=== PATIENT | female | born 1995 | race Caucasian/White ===

== ENCOUNTER 2020-05-04 10:47 | Outpatient (CLI) | payer OTHER, SELFPAY ==
[2020-05-04 12:40] LABS: Hematocrit 36.3 % (37.0-47.0); Hemoglobin 12.6 g/dL (12.0-15.0); Mean Corpuscular HGB Conc 34.7 g/dl (32-36); Mean Corpuscular Hemoglobin 32.1 pg (26-34); Mean Corpuscular Volume 92.4 fl (80-100); Mean Platelet Volume 10.9 fl (7.4-10.4); Platelet Count Result 189 k/mm3 (150-375); Red Blood Count 3.93 M/mm3 (4.2-5.4); Red Cell Distribution Width 13.3 % (11.5-14.5); White Blood Count 9.9 K/mm3 (4.5-10.0)
[2020-05-04 12:56] LABS: Glucose 1 Hour PP 50gm Dose 171 mg/dL
[2020-05-04 13:38] LABS: HIV 1/2 Ab P24 Ag Result Negative (Negative)
== END 2020-05-04 10:48 | disposition home or self-care (01) ==
PROVIDERS: Visit Provider Obstetrics & Gynecology
DX: Z34.92 Encounter for supervision of normal pregnancy, unspecified, second trimester (principal); Z3A.00 Weeks of gestation of pregnancy not specified
CPT/HCPCS: 36415; 82947; 85027; 86703; G0432

== ENCOUNTER 2020-05-04 12:26 | Emergency (ER) | payer OTHER, SELFPAY ==
[2020-05-04 12:49] VITALS: BP 105/70; PULSE 98; RESP 18; TEMP 36.1; O2SAT 99
--- NOTE | 2020-05-04 14:05 | PC.NURSE ---
1325-NO ANSWER WHEN CALLED BACK TO EXAM ROOM 1340-NO ANSWER WHEN CALLED BACK TO EXAM ROOM REGISTRATION NOTIFIED
== END 2020-05-04 12:35 | disposition left against medical advice (07) ==
DX: Z53.21 Procedure and treatment not carried out due to patient leaving prior to being seen by health care provider (principal)
CPT/HCPCS: 99199

== ENCOUNTER 2020-05-07 13:47 | Outpatient (CLI) | payer OTHER, SELFPAY ==
--- NOTE | ~2020-05-07 | US_ITS ---
US breast RT complete 05/07/2020 14:33 Indication: Right breast pain with palpable lump. Patient is 30 weeks . Procedure: High-resolution ultrasound of the right breast Comparison: No prior studies for comparison. Findings: At 5:00, 1 cm from the nipple in the area of palpable concern there is an irregularly mirza nated hypoechoic mass measuring 3.8 x 3.7 x 2.1 cm with internal vascularity. There is no significant posterior features and parallel orientation. Impression: 1: Irregular shaped hypoechoic right breast mass at 5:00, 1 cm from the nipple. BI-RADS CATEGORY 4-SUSPICIOUS ABNORMALITY RECOMMENDATION: Ultrasound-guided right breast biopsy recommended. Reviewed, dictated and finalized at location A. ANICS HANDYMAN Impression: 1: Irregular shaped hypoechoic right breast mass at 5:00, 1 cm from the nipple. BI-RADS CATEGORY 4-SUSPICIOUS ABNORMALITY RECOMMENDATION: Ultrasound-guided right breast biopsy recommended.
== END 2020-05-07 13:48 | disposition home or self-care (01) ==
PROVIDERS: PCP Physician Assistant; Visit Provider Obstetrics & Gynecology
DX: N64.4 Mastodynia (principal); R92.8 Other abnormal and inconclusive findings on diagnostic imaging of breast
CPT/HCPCS: 76641

== ENCOUNTER 2020-06-17 14:47 | Outpatient (CLI) | payer OTHER, SELFPAY ==
--- NOTE | ~2020-06-17 | US_ITS ---
EXAMINATION: US OB follow up DATE: 06/17/2020 15:16 INDICATION: growth restriction. TECHNIQUE: Real-time ultrasound of the pelvis was performed. The interpreting radiologist was not pre sent for the study. COMPARISON: None FINDINGS: There is a single living fetus in vertex presentation. The placenta is fundal. heart rate is 1 34 beats per minute (bpm). The amniotic fluid index is 15.7 cm, which is normal (5th%-95%: 7.7-24.9 cm at 36 weeks estimated gestational age). The following biometric data were obtained: BPD: 9.2 cm -> 37 weeks 2 days Head circumference: 32.8 cm -> 37 weeks 1 days Abdominal circumference: 32.3 cm -> 36 weeks 1 days Femur length: 7.3 cm -> 37 weeks 2 days These measurements are concordant. Head circumference to abdominal circumference ratio: 1.01 (normal range 0.92-1.05). Estimated weight: 3007 g (+/-) 451 g. or 6 lbs. 10 oz. (+/-) 1 lbs. IMPRESSION: 1. Single living fetus in vertex presentation with heart rate of 134 bpm. 2. Gestational age by ultrasound of 37 weeks 0 day(s) +/- 2 week(s) 4 day(s) with ultrasound estimate d date of delivery (SYDNIE) of 07/08/2020. Estimated weight is 58th percentile by Hadlock criteria when 07/11/2020 is used as the SYDNIE. Please correlate with clinical information or earlier ultrasounds for most accurate SYDNIE. 3. Normal amniotic fluid index of 15.7 cm Reviewed, dictated and finalized at location A. M MEASURER IMPRESSION: 1. Single living fetus in vertex presentation with heart rate of 134 bpm. 2. Gestational age by ultrasound of 37 weeks 0 day(s) +/- 2 week(s) 4 day(s) wi th ultrasound estimated date of delivery (SYDNIE) of 07/08/2020. Estimated we ight is 58th percentile by Hadlock criteria when 07/11/2020 is used as the SYDNIE. Please correlate with clinical information or earlier ultrasounds for most accu rate SYDNIE. 3. Normal amniotic fluid index of 15.7 cm
== END 2020-06-17 14:48 | disposition home or self-care (01) ==
PROVIDERS: PCP Physician Assistant; Visit Provider Obstetrics & Gynecology
DX: O35.8XX9 Maternal care for other (suspected) fetal abnormality and damage, other fetus (principal); Z3A.37 37 weeks gestation of pregnancy
CPT/HCPCS: 76816

== ENCOUNTER 2020-07-07 13:31 | Outpatient (RCR) | payer OTHER, SELFPAY ==
[2020-06-25 14:42] VITALS: BP 114/66; PULSE 90
[2020-06-29 15:10] VITALS: BP 110/75; PULSE 95
[2020-07-02 14:56] VITALS: BP 102/70; PULSE 106
--- NOTE | ~2020-07-07 | US_ITS ---
EXAMINATION: US OB BPP wo non-stress DATE: 06/25/2020 14:41 INDICATION: Maternal gestational diabetes during third trimester of TECHNIQUE: Real-time pelvic ultrasound was performed. The interpreting radiologist was not present fo r the study. COMPARISON: 06/17/2020 FINDINGS: There is a single living fetus in breech presentation. The placenta is fundal. heart rate is 1 31 beats per minute (bpm). Biophysical profile performed by the technologist: breathing (30 sec sustained breathing in 30 minutes): 2 out of 2 movement (3 gross body movements in 30 minutes): 2 out of 2 tone (one episode of tpmwsgr-qihgkouml-wxiiemr limb movement): 2 out of 2 Amniotic fluid pocket (2 cm): 2 out of 2 Total score: 8 out of 8 IMPRESSION: 1. Single living fetus in breech presentation with heart rate of 131 bpm. 2. Biophysical profile 8 out of 8. Reviewed, dictated and finalized at location B. S OR SURVEYS INTERVIEWER
--- NOTE | ~2020-07-07 | US_ITS ---
EXAMINATION: US OB BPP wo non-stress DATE: 07/02/2020 14:59 VARIETY SAW OPERATOR INDICATION: Gestational diabetes TECHNIQUE: Real-time transabdominal obstetric ultrasound. FINDINGS: Ultrasound dated 06/25/2020 There is a single living fetus in vertex presentation. The placenta is fundal without placenta previ a. cardiac activity and movement is noted with a heart rate of 146 beats per minute. Biophysical profile: breathin of 2 movement: 2 of 2 tone: 2 of 2 Amniotic flud pocket: 2 of 2 Total score: 8 of 8 IMPRESSION: 1. Single living intrauterine in vertex presentation. 2: Total biophysical profile score of 8/8. Reviewed, dictated and finalized at location A. ETY SAW OPERATOR
[2020-07-07 14:06] VITALS: BP 100/75; PULSE 84
== END 2020-07-13 07:32 | disposition home or self-care (01) ==
LOC: ANHOBOP 13:31
PROVIDERS: PCP Physician Assistant; Visit Provider Obstetrics & Gynecology
DX: O24.419 Gestational diabetes mellitus in pregnancy, unspecified control (principal); Z3A.37 37 weeks gestation of pregnancy; Z3A.38 38 weeks gestation of pregnancy; Z3A.39 39 weeks gestation of pregnancy
CPT/HCPCS: 59025; 76819

== ENCOUNTER 2020-07-09 17:01 | Inpatient (IN) | payer OTHER, SELFPAY ==
[2020-07-09] VITALS (7 sets, daily range): BP systolic 97–126; BP diastolic 55–77; PULSE 80–101; TEMP 36.8; BMI 31.4
[2020-07-09 17:48] LABS: Glucose Point of Care 127 (65-105)
[2020-07-09 17:52] LABS: Basophils Percent Auto 0.3 % (0.2-1.2); Eosinophils Percent Auto 0.4 % (0-4.4); Hematocrit 36.5 % (37.0-47.0); Hemoglobin 12.6 g/dL (12.0-15.0); Immature Granulocyte Absolute 0.13 K/mm3 (0.00-0.031); Immature Granulocyte Percent A 1.4 % (0-0.5); Lymphocytes Percent Auto 18.1 % (18.3-44.2); Mean Corpuscular HGB Conc 34.5 g/dl (32-36); Mean Corpuscular Volume 89.7 fl (80-100); Mean Platelet Volume 11.4 fl (7.4-10.4); Monocytes Absolute Auto 0.4 K/mm3 (0.1-0.6); Monocytes Percent Auto 4.7 % (2.6-8.5); Neutrophils Percent Auto 75.1 % (45.5-73.1); Platelet Count Result 185 k/mm3 (150-375); Red Blood Count 4.07 M/mm3 (4.2-5.4); Red Cell Distribution Width 13.6 % (11.5-14.5); White Blood Count 9.4 K/mm3 (4.5-10.0)
--- NOTE | 2020-07-09 18:07 | LDADM ---
This patient, Osiris Santo, was admitted to Labor/Delivery/Recovery 105 on 07/09/20 at 17:01. Plans for labor, pain management and were discussed with patient. Patient/family oriented to hospital policies and general routines including ID bracelet, bed and alarms, visiting hours, pain management, procedures, bathroom and other care routines, personal items, smoking policy, room service/diet and guest tray routines, security routines, and visiting hours. Patient/Family are encouraged to report perceived risks to care and to ask questions if they do not understand what they are told or what they should do. See OBIX for further documentation.
[2020-07-09] MEDS: DINOPROSTONE 10 MG VAG INSERT VAGINAL (18:17)
[2020-07-09] MEDS: ACETAMINOPHEN 500 MG TABLET 1000 MG PO (18:24)
[2020-07-10] VITALS (106 sets, daily range): BP systolic 99–139; BP diastolic 52–88; PULSE 73–212; RESP 18; TEMP 36.2–36.6; O2SAT 82–100
[2020-07-10] MEDS: fentaNYL CITRATE INJ (*CRX) 100 MCG/2 ML VIAL 50 MCG IV PUSH (03:43)
[2020-07-10 04:37] LABS: Glucose Point of Care 103 (65-105)
[2020-07-10] MEDS: LACTATED RINGERS 1,000 ML 125 ML IV CONT ×3 (04:54→07:23)
[2020-07-10] MEDS: OXYTOCIN 30 UNITS/NS 500 ML 30 UNITS/500 ML BAG IV CONT (05:15)
--- NOTE | 2020-07-10 05:27 | WPDANESEPP ---
Anes - Eval Pre Procedure Procedure: Labor epidural Date/Time: 07/10/20 05:27 Surgeon: ivan Preop Diagnosis: Abd pain with contractions Pre Op Diagnosis: Induction of Labor Patient Data Age: 25 Gender: F Height: 5 ft 6 in Weight: 88.5 kg Last Vital Signs Temp 97.8 F 07/10/20 04:31 Pulse 87 07/10/20 05:15 BP 128/76 07/10/20 05:15 Allergies Allergy/AdvReac Type Severity Reaction Status Date / Time latex Allergy Mild Rash Verified 05/04/20 12:54 azithromycin AdvReac Intermediate Nausea and Verified 05/04/20 12:54 Vomiting morphine AdvReac Intermediate Nausea and Verified 07/09/20 19:11 Vomiting Penicillins AdvReac Intermediate Nausea and Verified 05/04/20 12:54 Vomiting amoxicillin AdvReac Mild VOMITING Verified 05/04/20 12:54 diphenhydramine AdvReac Unknown Nausea and Verified 05/04/20 12:54 Vomiting Home Medications Medication Instructions Recorded Confirmed Type acyclovir 400 mg PO BID 06/25/20 07/09/20 History levothyroxine 75 mcg PO DAILY 06/25/20 07/09/20 History ondansetron 8 mg PO Q6H PRN 06/25/20 07/09/20 History wrgqijv-sorhbyzxnzljx-tpltdxob 2 tablet PO Q4-6H PRN 07/09/20 07/09/20 History [Excedrin Migraine] Laboratory Tests 07/09/20 07/09/20 07/09/20 17:43 17:46 17:46 WBC 9.4 K/mm3 K/mm3 (4.5-10.0) RBC 4.07 M/mm3 L M/mm3 (4.2-5.4) Hgb 12.6 g/dL g/dL (12.0-15.0) Hct 36.5 % L % (37.0-47.0) MCV 89.7 fl fl (80-100) MCH 31.0 pg pg (26-34) MCHC 34.5 g/dl g/dl (32-36) RDW 13.6 % % (11.5-14.5) Plt Count 185 k/mm3 k/mm3 (150-375) MPV 11.4 fl H fl (7.4-10.4) Immature Gran % (Auto) 1.4 % H % (0-0.5) Neut % (Auto) 75.1 % H % (45.5-73.1) Lymph % (Auto) 18.1 % L % (18.3-44.2) [place] % (Auto) 4.7 % % (2.6-8.5) Eos % (Auto) 0.4 % % (0-4.4) Baso % (Auto) 0.3 % % (0.2-1.2) Lymph # (Auto) 1.70 K/mm3 K/mm3 (0.9-3.2) [place] # (Auto) 0.4 K/mm3 K/mm3 (0.1-0.6) Eos # (Auto) 0.0 K/mm3 K/mm3 (0-0.3) Baso # (Auto) 0.0 K/mm3 K/mm3 (0.0-0.1) Abs Immat Gran (auto) 0.13 K/mm3 H K/mm3 (0.00-0.031) Absolute Neuts (auto) 7.0 K/mm3 H K/mm3 (1.3-6.7) Absolute Nucleated RBC 0.0 K/mm3 K/mm3 (0.0-0.012) Nucleated RBC % 0.0 % % (0.0-0.2) POC Capillary Glucose 127 mg/dl H mg/dl (65-105) RPR Pending Blood Type Antibody Screen 07/09/20 07/10/20 17:46 04:31 WBC RBC Hgb Hct MCV MCH MCHC RDW Plt Count MPV Immature Gran % (Auto) Neut % (Auto) Lymph % (Auto) [place] % (Auto) Eos % (Auto) Baso % (Auto) Lymph # (Auto) [place] # (Auto) Eos # (Auto) Baso # (Auto) Abs Immat Gran (auto) Absolute Neuts (auto) Absolute Nucleated RBC Nucleated RBC % POC Capillary Glucose 103 mg/dl mg/dl (65-105) RPR Blood Type O Positive Antibody Screen Negative Patient hx anesthesia problems: none Family hx anesthesia problems: none PMFSH Past Medical History Medical History Gestational diabetes 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
--- NOTE | 2020-07-10 06:36 | PM.OBPNLAB ---
Pain Control Date/time seen: 07/10/20 06:36 Pain control: epidural Pelvic Exam Dilation (cm): 2 (.5) Effacement (%): 50 station: -2 Amniotic membrane status: Ruptured (scant, clear @ 0630) Contractions Monitor mode: External Contraction frequency: 2 Contraction pattern: Regular Status status: Category l Assessment and Plan Pitocin rate (mU/min): 6 Assessment: induction ongoing Plan: continuous present management
[2020-07-10] MEDS: ONDANSETRON INJ 4 MG/2 ML VIAL IV PUSH (06:49)
[2020-07-10 07:11] LABS: Rapid Plasma Reagin Non-Reactive (NonReactive)
[2020-07-10 08:29] LABS: Glucose Point of Care 96 (65-105)
--- NOTE | 2020-07-10 10:51 | WPDHPUPDATE1 ---
History and Physical Update Update Date/Time: 07/10/20 10:51 History and Physical has been reviewed, including an updated exam of the patient. There are NO changes in the patient's condition. Risks, benefits, and alternatives have been discussed and questions answered. Patient agrees to proceed with procedure.
--- NOTE | 2020-07-10 10:51 | WPDOBADMIT ---
Obstetrics - Admit Note Admission Note: record reviewed. No pertinent additions to the history and/or any subsequent changes in the physical findings that are not consistent with the expected course of the were found. Additions to the history and/or subsequent changes in the physical findings follow. None.
--- NOTE | 2020-07-10 10:51 | PM.OBPRVD ---
OB - Delivery Note Procedure Route of delivery: Episiotomy description: None Laceration Description: None Specimen: Yes Quantitative Blood Loss (ml): 300 Anesthesia type: Epidural Disposition: floor Narrative: Patient prepped and draped. Maternal expulsive efforts readily delivered vertex nuchal cord was noted and reduced. Rest of baby was delivered cord clamped. Placenta delivered spontaneously with the uterus well contracted. Cervix vagina vulva were inspected with no lacerations or tears. This point the procedure was considered terminated. [place] Baby Weeks of gestation at delivery: 39 Infant gender: Female Weight (pounds): 7 Weight (ounces): 4 score one minute: 8 score five minutes: 9
[2020-07-10] MEDS: OXYTOCIN 30 UNITS/NS 500 ML 30 UNITS/500 ML BAG 125 UNITS IV CONT (10:55)
[2020-07-10] MEDS: IBUPROFEN 600 MG TABLET (11:24)
[2020-07-10] MEDS: ACETAMINOPHEN 500 MG TABLET 1000 MG PO (11:25)
--- NOTE | 2020-07-10 13:39 | PC.NURSE ---
Patient transferred to post room #282 via wheelchair. Support person present. Oriented to unit, room, information board, rooming in, admission packet and security measures. Patient verbalizes understanding.
[2020-07-10] MEDS: IBUPROFEN 600 MG TABLET PO ×2 (17:52→23:58)
[2020-07-10] MEDS: ACETAMINOPHEN 325 MG TABLET 650 MG PO (23:59)
[2020-07-11 06:16] LABS: Hematocrit 33.1 % (37.0-47.0); Hemoglobin 11.3 g/dL (12.0-15.0)
[2020-07-11] MEDS: ACETAMINOPHEN 325 MG TABLET 650 MG PO (07:16)
[2020-07-11] MEDS: LEVOTHYROXINE SODIUM 75 MCG TABLET PO (07:16)
[2020-07-11 07:17] VITALS: BP 109/73; PULSE 80; RESP 16; TEMP 36.4; O2SAT 100
[2020-07-11] MEDS: IBUPROFEN 600 MG TABLET PO (07:17)
--- NOTE | 2020-07-11 09:24 | WPDANLDPN2 ---
Anes-Prog Note L&D Date/Time: 07/11/20 09:24 Comfortable throughout: labor and delivery Neuraxial method: epidural Epidural/Spinal procedure site: clean & non-tender Neuro status: Neuro function grossly intact. Cardiovascular status: normal Respiratory status: normal Airway patency: baseline Mental status: baseline Post-Op hydration status: normal Vital Signs: Last Vital Signs Temp 36.5 C 07/10/20 19:30 Pulse 75 07/10/20 19:30 Resp 18 07/10/20 19:30 BP 104/69 07/10/20 19:30 Pulse Ox 99 07/10/20 19:30 Pain score (VAS): 0 Post-procedural complaints: none Patient feedback: Patient satisfied with anesthetic care.
[2020-07-11] MEDS: PARoxetine 10 MG TABLET PO (10:50)
[2020-07-11] MEDS: traMADol HCL (*CRX) 50 MG TABLET PO (10:51)
--- NOTE | 2020-07-14 08:40 | PM.OBDSVD ---
DS: Admitting Diagnosis Admitting Diagnosis Admitting Diagnosis: OB - DS: Summary OB Procedures : None OB Procedures Intrapartum: Spontaneous Vag Delivery OB Procedures: : None Time Spent with Patient Time attestation: Total time spent providing and/or coordinating discharge services: DS: Data Data Completed and Pending Pending studies at discharge: Pending at discharge 07/10/20 10:26 Surgical [PTH] Routine Discharge Plan Discharge Attending physician on discharge: Annamaria Lugo Discharging Clinician: Annamaria Lugo Anticipated Discharge Date/Time: 07/11/20 15:00 Patient Disposition: Home, Self-Care Activity: pelvic rest Diet: regular Discharge Instructions: Education: Mom and Baby Guide Given to: Mother Follow-Up: Call your delivering provider's office for an appointment to be seen in: 2 Weeks Mom and baby should come to the [facility] for the follow-up appointment. Appointment Date/Time: July 13, 2020 at 10:00 am Call [phone] if you are unable to keep your appointment time. BREAST CARE: * Wear a snug supportive bra. * For engorgement discomfort: Bottle Feeding: * May apply ice packs PERINEAL CARE: * Until bleeding stops, use your oliver bottle after urinating * Change your pad frequently throughout the day * You may take sitz baths several times a day (fill your bathtub with warm water and soak for 20 minutes.) Do NOT bathe in the water * No tub baths until seen by your physician - You may shower ACTIVITY: * Rest as much as possible. * Do not exercise or lift anything heavier than your baby (such as laundry or other children.) * Avoid stairs or driving as much as possible. * Do not put anything into the vagina. No douching, tampons, or sexual activity until seen by physician. NOTIFY PHYSICIAN IF YOU HAVE ANY QUESTIONS OR IF ANY OF THE FOLLOWING SYMPTOMS OCCUR: * If your episiotomy or incision becomes red, swollen, or more painful than what you have experienced in the hospital. * If your vaginal bleeding becomes foul smelling. * If your vaginal bleeding becomes more heavy than a period or if your bleeding changes from pink to bright red. However, you may pass an occasional walnut-sized clot once or twice for the first week . * If you experience a sharp, shooting pain in you calves. * If you discover a hard, reddened area on your breast or if you experience flu-like symptoms. DIET: * Eat regular, well-balanced meals. * Drink plenty of fluids daily. If , drink to thirst. Follow-up/Referrals: Kam Serna MD [Physician] - 2 Weeks Discharge Medications: New acetaminophen [Mapap (acetaminophen)] 325 mg Tablet 650 mg PO Q6H PRN (Reason: Mild Pain (1-3) Or Headache) 10 Days Qty: 60 RF: 0 ibuprofen 600 mg Tablet 600 mg PO Q6H PRN (Reason: Cramping) 10 Days Qty: 40 RF: 0 paroxetine HCl 10 mg tablet 10 mg PO QAM Qty: 90 RF: 2 tramadol 50 mg tablet 50 mg PO Q6H PRN (Reason: pain) 3 Days Qty: 10 RF: 0 Continued levothyroxine 75 mcg tablet 75 mcg PO DAILY 90 Days Qty: 90 RF: 3 Discontinued Excedrin Migraine 250-250-65 mg Tablet 2 tablet PO Q4-6H PRN (Reason: Headache) RF: 0 acyclovir 400 mg tablet 400 mg PO BID RF: 0 ondansetron 8 mg tablet,disintegrating 8 mg PO Q6H PRN (Reason: Nausea) RF: 0 Date of admission: 07/09/20 17:01 Primary Care Provider: Celso,Parish Gastelum Admitting Provider: Kam Serna Attending physician on admission: Annamaria Lugo Condition: Stable
== END 2020-07-11 14:25 | disposition home or self-care (01) | DRG 560 ==
LOC: ANHLDR 07-10 12:53 → ANHOB2 07-11 09:42 → ANHLDR 07-14 06:38 → ANHOB2 07-14 06:38
PROVIDERS: Admitting Provider Obstetrics & Gynecology; PCP Physician Assistant; Visit Provider Obstetrics & Gynecology
DX: O69.81X0 Labor and delivery complicated by cord around neck, without compression, not applicable or unspecified (principal); O24.429 Gestational diabetes mellitus in childbirth, unspecified control; O76 Abnormality in fetal heart rate and rhythm complicating labor and delivery; Z3A.39 39 weeks gestation of pregnancy; Z37.0 Single live birth
CPT/HCPCS: 36415; 82948; 85014; 85018; 85025; 86592; 86850; 86900; 86901; 88307; A9270; J2405; J2590; J2795; J3010; J7120

== ENCOUNTER 2021-12-15 01:32 | Day surgery (SDC) | payer OTHER, SELFPAY ==
[2021-12-02 11:41] VITALS: BMI 30.2
--- NOTE | 2021-12-14 18:36 | PM.HPGS ---
History of Present Illness History of Present Illness Consent: Risks, benefits, and alternatives have been discussed and questions answered. Patient agrees to proceed with procedure. Chief complaint: reflux, dysphagia, nausea Narrative: Osiris Santo is a 26 year old female with dysphagia.? Reports symptoms have been going on for approximately a year and a half but over the past 6 months have progressively got worse. Reports dysphagia is worse with solids, but does state she will choke on water and liquids occasionally. ? Patient reports dysphagia daily, ? States? food starts going down slowly in mid chest and seems to stop epigastric area.? States sometimes she coughs it back up or it will pass after few minutes. ? She reports reflux and nausea daily.? Reflux is worse when she bends over and at night when she is laying down. Her mother was diagnosed with colon cancer at the age 52. The patient has several mushy stools every day. 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 Smoker Surgical History Surgical History History of mandibular surgery Family History Family History Mother Diabetes mellitus Hypothyroidism Gastroparesis Social History Social History Smoking packs per day: 2 Smoking cigarettes per day: 40.0 Years smoked: 6.5 Smoking pack-years: 13.00 Smoking status: Current some day smoker Tobacco type: cigarettes Second hand tobacco smoke exposure: No Alcohol intake: current Alcohol use details: 6 drinks monthly Substance use: current Substance use type: marijuana Last use: daily Living arrangements: with family Gender identity (if verbalized by the patient): Female Spiritual care concerns: No Meds Home Medications and Allergies Home Medications Medication Instructions Recorded Confirmed Type acetaminophen 325 mg tablet (Mapap 650 mg PO Q6H PRN Mild Pain (1-3) 07/11/20 12/02/21 Rx (acetaminophen)) Or Headache 10 days #60 tabs ibuprofen 600 mg tablet 600 mg PO Q6H PRN Cramping 10 days 07/11/20 12/02/21 Rx #40 tabs levothyroxine 75 mcg tablet 75 mcg PO DAILY 90 days #90 tabs 07/11/20 12/02/21 Rx acyclovir 400 mg tablet 400 mg PO BID 12/02/21 12/02/21 History diazepam 2 mg tablet 2 mg PO BID 12/02/21 12/02/21 History fluconazole 150 mg tablet 150 mg PO DAILY #2 tabs 12/06/21 12/15/21 Rx (Diflucan) fluconazole 150 mg tablet 150 mg PO DAILY #1 tablet 12/13/21 12/15/21 Rx (Diflucan) metronidazole 0.75 % vaginal gel 1 appful vaginal QHS 5 days #70 12/13/21 12/15/21 Rx grams Allergies Allergy/AdvReac Type Severity Reaction Status Date / Time latex Allergy Mild Rash Verified 12/15/21 07:44 azithromycin AdvReac Intermediate Nausea and Verified 12/15/21 07:44 Vomiting morphine AdvReac Intermediate Nausea and Verified 12/15/21 07:44 Vomiting Penicillins AdvReac Intermediate Nausea and Verified 12/15/21 07:44 Vomiting amoxicillin AdvReac Mild VOMITING Verified 12/15/21 07:44 diphenhydramine AdvReac Unknown Nausea and Verified 12/15/21 07:44 Vomiting Exam Const: General: alert Orientation/consciousness: patient oriented x3 Resp: Auscultation: clear to auscultation bilaterally Cardio: Rhythm: regular rhythm GI: GI Palp: Yes Soft to palpation and No Tenderness to palpation present (GI) Neuro: General: patient oriented x3 Assessment and Plan Assessment and plan (1) Dysphagia: Code(s): R13.10 - Dysphagia, unspecified Status: Acute Assessment and Plan: EGD with possible b
[2021-12-15 07:46] VITALS: BP 123/75; PULSE 67; RESP 20; TEMP 36.2; O2SAT 100; BMI 30.4
[2021-12-15] MEDS: LACTATED RINGERS 1,000 ML 150 ML IV CONT (07:55)
--- NOTE | 2021-12-15 08:47 | WPDANESEPPF ---
Anes - Initial Pre Proc Eval Procedure: Operation Date: 12/15/21 09:00 Proposed Procedures p Esophagogastroduodenoscopy - Brendan Pugh MD Date/Time: 12/15/21 08:47 Surgeon: Brendan Pugh MD Pre Op Diagnosis: reflux, dysphagia, nausea Patient Data Age: 26 Gender: F Height: 1.68 m Weight: 85.4 kg Last Vital Signs Temp 97.1 F L 12/15/21 07:46 Pulse 67 12/15/21 07:46 Resp 20 12/15/21 07:46 BP 123/75 12/15/21 07:46 Pulse Ox 100 12/15/21 07:46 O2 Del Method Room Air 12/15/21 07:46 Allergies Allergy/AdvReac Type Severity Reaction Status Date / Time latex Allergy Mild Rash Verified 12/15/21 07:44 azithromycin AdvReac Intermediate Nausea and Verified 12/15/21 07:44 Vomiting morphine AdvReac Intermediate Nausea and Verified 12/15/21 07:44 Vomiting Penicillins AdvReac Intermediate Nausea and Verified 12/15/21 07:44 Vomiting amoxicillin AdvReac Mild VOMITING Verified 12/15/21 07:44 diphenhydramine AdvReac Unknown Nausea and Verified 12/15/21 07:44 Vomiting Home Medications Medication Instructions Recorded Confirmed Type acetaminophen 325 mg tablet (Mapap 650 mg PO Q6H PRN Mild Pain (1-3) 07/11/20 12/02/21 Rx (acetaminophen)) Or Headache 10 days #60 tabs ibuprofen 600 mg tablet 600 mg PO Q6H PRN Cramping 10 days 07/11/20 12/02/21 Rx #40 tabs levothyroxine 75 mcg tablet 75 mcg PO DAILY 90 days #90 tabs 07/11/20 12/02/21 Rx acyclovir 400 mg tablet 400 mg PO BID 12/02/21 12/02/21 History diazepam 2 mg tablet 2 mg PO BID 12/02/21 12/02/21 History fluconazole 150 mg tablet 150 mg PO DAILY #2 tabs 12/06/21 12/15/21 Rx (Diflucan) fluconazole 150 mg tablet 150 mg PO DAILY #1 tablet 12/13/21 12/15/21 Rx (Diflucan) metronidazole 0.75 % vaginal gel 1 appful vaginal QHS 5 days #70 12/13/21 12/15/21 Rx grams Patient hx anesthesia problems: none Family hx anesthesia problems: none Results Review: All pre-operative results and documents have been reviewed as part of the pre-operative evaluation. 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 Smoker Surgical History Surgical History History of mandibular surgery Family History Family History Mother Diabetes mellitus Hypothyroidism Gastroparesis Social History Social History Smoking packs per day: 2 Smoking cigarettes per day: 40.0 Years smoked: 6.5 Smoking pack-years: 13.00 Smoking status: Current some day smoker Tobacco type: cigarettes Second hand tobacco smoke exposure: No Alcohol intake: current Alcohol use details: 6 drinks monthly Substance use: current Substance use type: marijuana Last use: daily Living arrangements: with family Gender identity (if verbalized by the patient): Female Spiritual care concerns: No Anes - Eval Final PreProcedure Day of Procedure 12/15/21 08:47 Patient weight: obese Heart: regular rate and rhythm Lungs: clear to auscultation Airway: Mallampati scale class II Neurological: alert and oriented Last oral intake: >/= 8 hours ASA classification: II Emergent: no Anesthetic plan: proceed Anesthesia type and monitoring: general GIVS and standard monitoring Results Review: All pre-operative results and documents have been reviewed as part of the pre-operative evaluation. Informed Consent: The patient's anesthetic plan and its attendant risks and benefits were discussed with the patient/family/POA. Questions were solicited and answers provided to the satisfaction of the patient/family/POA.
[2021-12-15] MEDS: BENZOCAINE (*SP) 60 ML SPRAY CAN (HURRICAINE) 1 SPRAY MUCOUS MEM (08:49)
[2021-12-15 08:58] VITALS: BP 102/67; PULSE 74; RESP 20; O2SAT 96
[2021-12-15 09:08] VITALS: BP 114/73; PULSE 72; RESP 20; O2SAT 97
[2021-12-15 09:18] VITALS: BP 118/81; PULSE 66; RESP 22; O2SAT 100
--- NOTE | 2021-12-15 11:54 | SUR.PHASEII ---
0858: PT TO RECOVERY AREA 10, SLEEPING, SPOUSE AT BEDSIDE. 0904: PT'S SPOUSE YELLS FROM ROOM HELP! RN AT BEDSIDE IMMEDIATELY TO FIND PT HAVING SEIZURE LIKE MOVEMENT WHILE LAYING ON LEFT SIDE, EYES ROLLED BACK INTO HEAD, LASTING APPROXIMATELY 20 SECONDS. SIMPLE MASK AT 10L PUT IN PLACE. DIRECTOR OF EXTENSION WORKSHAMEKA OSEGUERA AT BEDSIDE QUICKLY. CAROLA DIALLO AND DR ALMAGUER ALSO AT BEDSIDE QUICKLY. PT NO LONGER HAVING SEIZURE LIKE MOVEMENT, VITAL SIGNS 118/81, 100% ON 10L, HR 66, RESP 22. ANESTHESIA REMAINS AT BEDSIDE FOR SEVERAL MINUTES ASKING PT QUESTIONS AND OBSERVING PT. PT DROWSY BUT RESPONDING WITH MOANS. NO NEW ORDERS RECEIVED FROM DR ALMAGUER AT THIS TIME. SPOUSE REMAINS AT BEDSIDE. 0915: PT AWAKE AND TALKING, COMPLAINING OF EPIGASTRIC DISCOMFORT AND STATES FEELS LIKE ON FIRE. PT AND SPOUSE GIVEN DISCHARGE INSTRUCTIONS EXPLAINING PT IS TO RESUME HER OMEPRAZOLE FOR REFLUX. PT AND SPOUSE STATE UNDERSTANDING. 0923: PT AWAKE AND DRINKING WATER WITHOUT CONCERNS. 117/86, 70, 100% ON ROOM AIR. 0929: DR ALMAGUER NOTIFIED OF UPDATES, CAME TO SEE PT AT BEDSIDE, NO NEW ORDERS. PT DISCHARGED WITH SPOUSE.
== END 2021-12-15 09:40 | disposition home or self-care (01) ==
PROVIDERS: PCP Physician Assistant; Visit Provider Internal Medicine Gastroenterology
PROC: 0DJ08ZZ Inspection of Upper Intestinal Tract, Via Natural or Artificial Opening Endoscopic (ICD-10-PCS; CPT 43235; principal; 2021-12-15 09:00)
DX: R13.10 Dysphagia, unspecified (principal); K21.9 Gastro-esophageal reflux disease without esophagitis; F17.210 Nicotine dependence, cigarettes, uncomplicated; F12.90 Cannabis use, unspecified, uncomplicated; E66.9 Obesity, unspecified; Z68.30 Body mass index [BMI] 30.0-30.9, adult
CPT/HCPCS: 43239; 87081; 88305; J2704; J7120

== ENCOUNTER 2022-09-22 13:23 | Outpatient (CLI) | payer OTHER, SELFPAY ==
--- NOTE | ~2022-09-22 | MMUS_ITS ---
EXAMINATION: MM diagnostic [facility] BI w [facility], US breast BI complete HISTORY: Small palpable lump at left breast at 6:00. Family history of breast cancer including both g randmothers. Mother had ovarian cancer. Prior reportedly benign right breast biopsy. TECHNIQUE: ML, MLO and CC 3-D tomosynthesis images of both breasts were performed and synthetic 2-D i mages were generated. CAD analysis was submitted and interpreted. High resolution complete bilateral breast ultrasound examination including all 4 quadrants and subareolar areas was performed. COMPARISON: 05/07/2020 right complete breast ultrasound examination BREAST PARENCHYMAL COMPOSITION: There are scattered areas of fibroglandular density. FINDINGS: MAMMOGRAPHIC FINDINGS: Low-density circumscribed roughly 16 x 25 mm opacity with biopsy marker is noted in the inferomedial subareolar area, which would correspond to the 5:00 mass demonstrated on 05/07/2020 right breast ultr asound examination. This was reportedly benign. No suspicious mass, architectural distortion, malignant calcification, skin thickening or retraction of either breast is detected otherwise. ULTRASOUND: Right breast: Circumscribed oval parallel approximately 10 x 12 x 24 mm hypoechoic solid lesion without internal va scularity or posterior shadowing is noted in the subareolar area at 5:00. This is diminished in size compared to 3.8 x 3.7 x 2.1 cm measurement on 05/07/2020. This was reportedly benign. No other suspicious mass or suspicious shadowing is detected in the right breast. Left breast: Parallel circumscribed hypoechoic 4.9 x 2.8 mm lesion without internal vascularity or posterior shado wing is noted at 5:00 2 cm from the nipple. No other suspicious mass or suspicious shadowing is detected in the left breast. IMPRESSION: 1. Benign findings 2. Routine annual mammographic screening is recommended beginning at age 40, unless there are interve santosh clinical breast complaints or physical examination breast findings or finding of genetic predisp osition, considering the family history. BI-RADS Category 2: Benign finding(s). Reviewed, dictated and finalized at location A. IMPRESSION: 1. Benign findings 2. Routine annual mammographic screening is recommended beginning at age 40, un less there are intervening clinical breast complaints or physical examination b reast findings or finding of genetic predisposition, considering the family his tory. BI-RADS Category 2: Benign finding(s).
== END 2022-09-22 13:24 | disposition home or self-care (01) ==
LOC: ANHIMG 13:25
PROVIDERS: PCP Physician Assistant; Visit Provider Physician Assistant
DX: Z80.3 Family history of malignant neoplasm of breast (principal)
CPT/HCPCS: 76641; 77062; 77066; G0279